=== PATIENT | female | born 1960 | race Caucasian/White ===

== ENCOUNTER 2018-01-26 20:20 | Emergency (ER) | payer OTHER, SELFPAY ==
[2018-01-26] MEDS ORDERED: KETOROLAC 30 MG/ML INJ ONE (21:04)
--- NOTE | 2018-01-26 21:28 | RAD REPORT ---
EXAM DESCRIPTION: RAD - Shoulder Right 2 View - 01/26/2018 9:17 pm CLINICAL HISTORY: PAIN COMPARISON: No comparisons FINDINGS: Mildly comminuted fracture of the proximal right humerus is noted. A dislocation is not id entified.
--- NOTE | 2018-01-26 21:37 | EDPHYS ---
Physician Documentation [facility] Name: Debora Mcwilliams Age: 57 yrs Sex: Female : 1960 Arrival Date: 01/26/2018 Time: 20:21 Bed 5 Private MD: ED Physician Saurabh Galeas HPI: 01/26 20:45 This 57 yrs old Female presents to ER via Ambulatory with complaints of Arm cali Injury-Disloction. 20:45 The patient or guardian complains of decreased range of motion, pain, that is acute. cali right shoulder. Context: The problem was sustained at home. Onset: The symptoms/episode began/occurred just prior to arrival. Modifying factors: the symptoms are alleviated by remaining still, The symptoms are aggravated by movement, rotation of arm. Associated signs and symptoms: The patient has no apparent associated signs or symptoms. Severity of symptoms: At their worst the symptoms were moderate, severe, in the emergency department the symptoms are unchanged. Treatment prior to arrival includes: no previous treatment. The patient has not experienced similar symptoms in the past. Historical: - Allergies: 20:30 Codeine; aj - PMHx: 20:30 Hypertension; Hypothyroidism; aj - PSHx: 20:30 Thyroidectomy; Hysterectomy; aj - Immunization history:: Adult Immunizations up to date. - Social history:: Smoking status: Patient/guardian denies using tobacco. - Ebola Screening: : Patient negative for fever greater than or equal to 101.5 degrees Fahrenheit, and additional compatible Ebola Virus Disease symptoms Patient denies exposure to infectious person Patient denies travel to an Ebola-affected area in the 21 days before illness onset No symptoms or risks identified at this time. - Family history:: not pertinent. ROS: 20:45 Constitutional: Negative for fever, chills, and weight loss, Eyes: Negative for injury, cali pain, redness, and discharge, ENT: Negative for injury, pain, and discharge, Neck: Negative for injury, pain, and swelling, Cardiovascular: Negative for chest pain, palpitations, and edema, Respiratory: Negative for shortness of breath, cough, wheezing, and pleuritic chest pain, Abdomen/GI: Negative for abdominal pain, nausea, vomiting, diarrhea, and constipation, Back: Negative for injury and pain, : Negative for injury, bleeding, discharge, and swelling, Skin: Negative for injury, rash, and discoloration, Neuro: Negative for headache, weakness, numbness, tingling, and seizure, Psych: Negative for depression, anxiety, suicide ideation, homicidal ideation, and hallucinations, Allergy/Immunology: Negative for hives, rash, and allergies, Endocrine: Negative for neck swelling, polydipsia, polyuria, polyphagia, and marked weight changes, Hematologic/Lymphatic: Negative for swollen nodes, abnormal bleeding, and unusual bruising. 20:45 MS/extremity: Positive for decreased range of motion, pain, swelling, tenderness, of the anterior aspect of right shoulder and posterior aspect of right shoulder. Exam: 20:45 Constitutional: This is a well developed, well nourished patient who is awake, alert, cali and in no acute distress. Head/Face: Normocephalic, atraumatic. Eyes: Pupils equal round and reactive to light, extra-ocular motions intact. Lids and lashes normal. Conjunctiva and sclera are non-icteric and not injected. Cornea within normal limits. Periorbital areas with no swelling, redness, or edema. ENT: Nares patent. No nasal discharge, no septal abnormalities noted. Tympanic membranes are normal and external auditory canals are clear. Oropharynx with no redness, swelling, or masses, exudates, or evidence of obstruction, uvula midline. Mucous membranes moist. Neck: Trachea midline, no thyromegaly or masses palpated, and no cervical lymphadenopathy. Supple, full range of motion without nuchal rigidity, or vertebral point tenderness. No Meningismus. Chest/axilla: Normal chest wall appearance and motion. Nontender with no deformity. No lesions are appreciated. Cardiovascular: Regular rate and rhythm with a normal S1 and S2. No gallops, murmurs, or rubs. Normal PMI, no JVD. No pulse deficits. Respiratory: Lungs have equal breath sounds bilaterally, clear to auscultation and percussion. No rales, rhonchi or wheezes noted. No increased work of breathing, no retractions or nasal flaring. Abdomen/GI: Soft, non-tender, with normal bowel sounds. No distension or tympany. No guarding or rebound. No evidence of tenderness throughout. Back: No spinal tenderness. No costovertebral tenderness. Full range of motion. Female : Normal external genitalia. Skin: Warm, dry with normal turgor. Normal color with no rashes, no lesions, and no evidence of cellulitis. Neuro: Awake and alert, GCS 15, oriented to person, place, time, and situation. Cranial nerves II-XII grossly intact. Motor strength 5/5 in all extremities. Sensory grossly intact. Cerebellar exam normal. Normal gait. Psych: Awake, alert, with orientation to person, place and time. Behavior, mood, and affect are within normal limits. 20:45 Musculoskeletal/extremity: Extremities: noted in the anterior aspect of right shoulder and posterior aspect of right shoulder: decreased ROM, ROM: limited active range of motion, limited passive range of motion, Circulation is intact in all extremities. Sensation intact. Compartment Syndrome exam of affected extremity: is normal. DVT Exam: negative Homans' sign noted on exam, no appreciated bluish discoloration, no erythema, no increased warmth, pain, swelling, tenderness. Vital Signs: 20:30 BP 136 / 76; Pulse 78; Resp 15; Temp 98.2; Pulse Ox 95% on R/A; Weight 62.6 kg; Height aj 5 ft. 4 in. (162.56 cm); 21:32 BP 124 / 74; Pulse 82; Resp 18; Pulse Ox 99% on R/A; tl2 20:30 Body Mass Index 23.69 (62.60 kg, 162.56 cm) aj MDM: 20:42 Patient medically screened. [facility] 20:47 Data reviewed: vital signs, nurses notes, radiologic studies, plain films. [facility] 01/26 20:45 Order name: Shoulder Right (2 View) XRAY; Complete Time: 21:31 [facility] 01/26 20:45 Order name: Ice pack; Complete Time: 21:03 [facility] 01/26 21:30 Order name: Shoulder Immobilizer; Complete Time: 22:09 [facility] Administered Medications: 21:03 Drug: TORadol 60 mg Route: IM; Site: left deltoid; tl2 22:00 Follow up: Response: No adverse reaction tl2 22:39 Drug: Demerol 50 mg Route: IM; Site: left deltoid; tl2 23:00 Follow up: Response: No adverse reaction; Medication administered at discharge. tl2 22:39 Drug: Phenergan 25 mg Route: IM; Site: right gluteus; tl2 23:00 Follow up: Response: No adverse reaction; Medication administered at discharge. tl2 Disposition: 01/26/18 21:36 Discharged to Home. Impression: 3-part fracture of surgical neck of right humerus. - Condition is Stable. - Discharge Instructions: Humerus Fracture Treated With Immobilization, Humerus Fracture Treated With Immobilization, [id number], Fall Prevention in the Home, [id number]. - Prescriptions for Tramadol 50 mg Oral Tablet - take 1 tablet by ORAL route every 8 hours as needed; 30 tablet. Ibuprofen 600 mg Oral Tablet - take 1 tablet by ORAL route every 8 hours As needed take with food; 30 tablet. - Medication Reconciliation Form, Thank You Letter, Antibiotic Education, Prescription Opioid Use form. - Follow up: Private Physician; When: 2 - 3 days; Reason: Recheck today's complaints, Continuance of care, Re-evaluation by your physician. Follow up: Jcarlos Lees MD; When: 2 - 3 days; Reason: Recheck today's complaints, Continuance of care, Re-evaluation by your physician. - Problem is new. - Symptoms have improved. Signatures: Dispatcher [employer] EDIvelisse Machado, Saurabh Allison RN, MD MD cha Knox, Taylor, RN RN tl2 Corrections: (The following items were deleted from the chart) 23:33 21:36 01/26/2018 21:36 Discharged to Home. Impression: 3-part fracture of surgical neck tl2 of right humerus. Condition is Stable. Forms are Medication Reconciliation Form, Thank You Letter, Antibiotic Education, Prescription Opioid Use. Follow up: Private Physician; When: 2 - 3 days; Reason: Recheck today's complaints, Continuance of care, Re-evaluation by your physician. Follow up: Jcarlos Lees; When: 2 - 3 days; Reason: Recheck today's complaints, Continuance of care, Re-evaluation by your physician. Problem is new. Symptoms have improved. cali
--- NOTE | 2018-01-26 21:37 | ER ---
Nurse's Notes [facility] Name: Debora Mcwilliams Age: 57 yrs Sex: Female : 1960 Arrival Date: 01/26/2018 Time: 20:21 Bed 5 Private MD: Diagnosis: 3-part fracture of surgical neck of right humerus Presentation: 01/26 20:28 Presenting complaint: Patient states: Right shoulder pain that started 30 min ago after aj trip and fall while walking. Patient reports that she believes her shoulder is dislocated. Transition of care: patient was not received from another setting of care. Onset of symptoms was January 26, 2018. Risk Assessment: Do you want to hurt yourself or someone else? Patient reports no desire to harm self or others. Initial Sepsis Screen: Does the patient meet any 2 criteria? No. Patient's initial sepsis screen is negative. Does the patient have a suspected source of infection? No. Patient's initial sepsis screen is negative. Care prior to arrival: None. 20:28 Method Of Arrival: Ambulatory 20:28 Acuity: [place] 3 aj Triage Assessment: 20:30 General: Appears in no apparent distress. uncomfortable, Behavior is calm, cooperative, aj appropriate for age. Pain: Complains of pain in anterior aspect of right shoulder. Neuro: Level of Consciousness is awake, alert, obeys commands, Oriented to person, place, time, situation, Appropriate for age. Respiratory: Airway is patent Respiratory effort is even, unlabored, Respiratory pattern is regular, symmetrical. Derm: Skin is intact, is healthy with good turgor, Skin is pink, warm \T\ dry. normal. Musculoskeletal: Reports pain in anterior aspect of right shoulder and posterior aspect of right shoulder. Historical: - Allergies: 20:30 Codeine; aj - PMHx: 20:30 Hypertension; Hypothyroidism; aj - PSHx: 20:30 Thyroidectomy; Hysterectomy; aj - Immunization history:: Adult Immunizations up to date. - Social history:: Smoking status: Patient/guardian denies using tobacco. - Ebola Screening: : Patient negative for fever greater than or equal to 101.5 degrees Fahrenheit, and additional compatible Ebola Virus Disease symptoms Patient denies exposure to infectious person Patient denies travel to an Ebola-affected area in the 21 days before illness onset No symptoms or risks identified at this time. - Family history:: not pertinent. Screenin:41 Abuse screen: Denies threats or abuse. Nutritional screening: No deficits noted. tl2 Tuberculosis screening: No symptoms or risk factors identified. Fall Risk None identified. Assessment: 20:41 General: Appears in no apparent distress. uncomfortable, Behavior is calm, cooperative, tl2 appropriate for age. Pain: Complains of pain in posterior aspect of right shoulder and anterior aspect of right shoulder. Neuro: Level of Consciousness is awake, alert, obeys commands, Oriented to person, place, time, situation. Respiratory: Airway is patent Respiratory effort is even, unlabored, Respiratory pattern is regular, symmetrical. GI: No signs and/or symptoms were reported involving the gastrointestinal system. Derm: Skin is pink, warm \T\ dry. Musculoskeletal: Circulation, motion, and sensation intact. Range of motion: limited in right shoulder. Injury Description: Deformity sustained to anterior aspect of right shoulder is dislocated, was sustained 30-60 minutes ago. 21:31 Reassessment: Patient appears in no apparent distress at this time. Patient and/or tl2 family updated on plan of care and expected duration. Pain level reassessed. Patient is alert, oriented x 3, equal unlabored respirations, skin warm/dry/pink. awaiting xray results. 22:30 Reassessment: Patient appears in no apparent distress at this time. Patient and/or tl2 family updated on plan of care and expected duration. Pain level reassessed. Patient is alert, oriented x 3, equal unlabored respirations, skin warm/dry/pink. Vital Signs: 20:30 BP 136 / 76; Pulse 78; Resp 15; Temp 98.2; Pulse Ox 95% on R/A; Weight 62.6 kg; Height aj 5 ft. 4 in. (162.56 cm); 21:32 BP 124 / 74; Pulse 82; Resp 18; Pulse Ox 99% on R/A; tl2 20:30 Body Mass Index 23.69 (62.60 kg, 162.56 cm) ED Course: 20:21 Patient arrived in ED. ds1 20:29 Triage completed. aj 20:30 Arm band placed on left wrist. Patient placed in an exam room. aj 20:41 Tabatha Webster RN is Primary Nurse. tl2 20:41 Saurabh Galeas MD is Attending Physician. cali 20:41 Patient has correct armband on for positive identification. Bed in low position. Call tl2 light in reach. Side rails up X 1. Adult w/ patient. 21:14 Shoulder Right (2 View) XRAY In Process Unspecified. EDMS 21:31 Jcarlos Lees MD is Referral Physician. [facility] 23:31 No provider procedures requiring assistance completed. Patient did not have IV access tl2 during this emergency room visit. Administered Medications: 21:03 Drug: TORadol 60 mg Route: IM; Site: left deltoid; tl2 22:00 Follow up: Response: No adverse reaction tl2 22:39 Drug: Demerol 50 mg Route: IM; Site: left deltoid; tl2 23:00 Follow up: Response: No adverse reaction; Medication administered at discharge. tl2 22:39 Drug: Phenergan 25 mg Route: IM; Site: right gluteus; tl2 23:00 Follow up: Response: No adverse reaction; Medication administered at discharge. tl2 Outcome: 21:36 Discharge ordered by . [facility] 23:31 Discharged to home via wheelchair, with family. tl2 23:31 Condition: stable 23:31 Discharge instructions given to patient, family, Instructed on discharge instructions, follow up and referral plans. medication usage, Demonstrated understanding of instructions, follow-up care, medications, Prescriptions given X 2. 23:33 Patient left the ED. tl2 Signatures: Dispatcher [employer] Ivelisse Marinelli, RN Saurabh Allison MD MD cha Sanford, Demi ds1 Tabatha Webster RN RN tl2
[2018-01-26] MEDS ORDERED: MEPERIDINE HCL 50 MG/ML AMP ONE (22:21)
[2018-01-26] MEDS ORDERED: PROMETHAZINE 25 MG/ML VIAL ONE (22:21)
== END 2018-01-26 23:33 | disposition home or self-care (01) ==
LOC: ER 20:20
DX: S42.231A 3-part fracture of surgical neck of right humerus, initial encounter for closed fracture (principal); X58.XXXA Exposure to other specified factors, initial encounter; Y93.9 Activity, unspecified; Y92.009 Unspecified place in unspecified non-institutional (private) residence as the place of occurrence of the external cause; Z88.5 Allergy status to narcotic agent; I10 Essential (primary) hypertension
CPT/HCPCS: 96372; 99283; J2175; J2550